=== PATIENT | female | born 1960 | race Caucasian/White ===

== ENCOUNTER → 2018-03-17 | Outpatient (CLI) | payer OTHER, MEDICARE ==
[~2018-03-17] MED LIST: ASC500 PO; CALC-852 PO; CLIN300C99 PO; CLO75 PO; CLOP75TA43 PO; ESOM40CA42 PO; EZET1TAB70 PO; FERR27TA3 PO; FISH1CAP15 PO; GLUC500C29 PO; HYDR-318 PO; IBU200 PO; IBUP200C17 PO; LISI-351 PO; LISI-355 PO; LOR5/325 PO; METF-410 PO; OMEP-125 PO; SIMV-59 PO; VIT1CAPS33 PO; [UNRECOGNIZED DRUG - CODE] PO; [UNRECOGNIZED DRUG - CODE] PO
[2018-03-17 09:23] LABS: LDL CHOLESTEROL 93 mg/dl
== END ==
LOC: LAB 08:55
PROVIDERS: ATTEND Internal Medicine
DX: I10 Essential (primary) hypertension (principal); E78.2 Mixed hyperlipidemia; E11.9 Type 2 diabetes mellitus without complications
CPT/HCPCS: 36415; 82040; 82247; 82310; 82374; 82435; 82465; 82565; 82947; 83036; 83718; 84075; 84132; 84155; 84295; 84450; 84460; 84478; 84520

== ENCOUNTER → 2018-07-08 | Outpatient (CLI) | payer OTHER, MEDICARE ==
[~2018-07-08] MED LIST changes: -METF-410 PO; +METF-411 PO; +ONDA8TAB94 PO; -SIMV-59 PO; +SIMV-63 PO
[2018-07-08 15:10] LABS: PLATELET COUNT, AUTOMATED 296 K/uL (150-450)
== END ==
LOC: LAB 14:22
PROVIDERS: ATTEND Nurse Practitioner Primary Care
DX: R19.7 Diarrhea, unspecified (principal); I10 Essential (primary) hypertension; E11.9 Type 2 diabetes mellitus without complications
CPT/HCPCS: 36415; 82040; 82247; 82310; 82374; 82435; 82465; 82565; 82947; 83036; 83718; 84075; 84132; 84155; 84295; 84443; 84450; 84460; 84478; 84520; 85025

== ENCOUNTER → 2019-02-10 | Outpatient (CLI) | payer MEDICARE, OTHER ==
[~2019-02-10] MED LIST changes: -METF-411 PO; +METF-450 PO; +OCUVITE SOFTGE1 EACH PO; +SIMV-117 PO; -SIMV-63 PO; -VIT1CAPS33 PO
== END ==
LOC: LAB 10:52
PROVIDERS: ATTEND Internal Medicine
DX: E11.9 Type 2 diabetes mellitus without complications (principal)
CPT/HCPCS: 36415; 83036

== ENCOUNTER → 2019-02-17 | Outpatient (CLI) | payer MEDICARE, OTHER ==
[~2019-02-17] MED LIST changes: +PUMP300C PO; +ROSU20TA5 PO
== END ==
LOC: LAB 16:24
PROVIDERS: ATTEND Emergency Medicine
DX: R82.998 Other abnormal findings in urine (principal)
CPT/HCPCS: 81001; 87088

== ENCOUNTER → 2019-02-26 | Outpatient (CLI) | payer MEDICARE, OTHER | LOC: LAB 10:32 | PROVIDERS: ATTEND Emergency Medicine | DX: R32 Unspecified urinary incontinence (principal) | CPT/HCPCS: 81001; 87088 ==

== ENCOUNTER → 2019-03-17 | Outpatient (CLI) | payer MEDICARE, OTHER ==
[~2019-03-17] MED LIST changes: +SULF-198 PO
--- NOTE | 2019-03-19 08:25 | RADIOLOGY IMAGING REPORT ---
FACILITY: [facility] PATIENT NAME: RUI LIVINGSTON : [id number] MR: [id number] V: [id number] EXAM DATE: [id number] ORDERING PHYSICIAN: GLORIA JEFFRIES TECHNOLOGIST: Smiley Gu PROCEDURE:BILATERAL DIGITAL SCREENING MAMMOGRAM WITH CAD ASSISTED INTERPRETATION & 3D TOMOSYNTHESIS COMPARISON:Prior mammograms 07/24/17, 01/26/15. INDICATIONS:Screening FINDINGS: The breasts are heterogeneously dense which can obscure small masses. The parenchymal pattern has remained stable allowing for difference in mammographic technique & patient positioning. DIAGNOSTIC CATEGORY 1--NEGATIVE. RECOMMENDATIONS: ROUTINE MAMMOGRAM AND CLINICAL EVALUATION. IMPRESSION: BIRADS 1: Negative. No significant abnormality is seen. Dictated by: Tiffanie Carranza M.D. on 03/17/2019 at 17:50 Transcribed by: MILLA on 03/18/2019 at 9:59 Approved by: Tiffanie Carranza M.D. on 03/19/2019 at 8:23 [facility]
== END ==
LOC: MAMO 01:05
PROVIDERS: ATTEND Emergency Medicine
DX: Z12.31 Encounter for screening mammogram for malignant neoplasm of breast (principal)
CPT/HCPCS: 77063; 77067